=== PATIENT | male | born 1955 | race Asian ===

== ENCOUNTER 2021-09-18 14:59 | Emergency (ER) | payer MEDICARE ==
[~2021-09-18] VITALS: Ht 170.2 cm; Wt 70.8 kg
--- NOTE | 2021-09-18 15:15 | NUR ---
Dr Quevedo at the bedside for MSE.
[2021-09-18] MEDS ORDERED: ASPI81TA31 PO (15:24)
[2021-09-18] MEDS ORDERED: METO-357 PO (15:24)
[2021-09-18] MEDS ORDERED: ATOR80TA PO (15:24)
[2021-09-18] MEDS ORDERED: CLOP75TA15 PO (15:24)
[2021-09-18] MEDS ORDERED: LISI10TA29 PO (15:24)
[2021-09-18 16:28] LABS: CARBON DIOXIDE 28 mmol/L (21-32); CHLORIDE 106 mmol/L (98-107); CREATININE 0.9 mg/dL (0.6-1.3); GLUCOSE 105 mg/dL (74-106); UREA NITROGEN, BLOOD 21 mg/dL (7-18)
[2021-09-18 16:55] LABS: ALANINE AMINOTRANSFERASE 32 U/L (16-63); ALKALINE PHOSPHATASE 84 U/L (50-136); ASPARTATE AMINOTRANSFERASE 16 U/L (15-37); BILIRUBIN,DIRECT 0.1 mg/dL (0.0-0.2); BILIRUBIN,TOTAL 0.5 mg/dL (0.2-1.0); TOTAL PROTEIN, SERUM 7.2 g/dL (6.4-8.2)
[2021-09-18 17:20] LABS: HEMATOCRIT 42.9 % (36.7-47.1); MEAN CORPUSCULAR HEMOGLOBIN 31.2 uug (23.8-33.4); MEAN CORPUSCULAR VOLUME 93.8 fL (73.0-96.2); PLATELET COUNT (AUTO) 192 K/uL (152-348)
--- NOTE | 2021-09-18 18:00 | NUR ---
Resting in bed, no c/o pain, dinner tray provided.
[2021-09-18] MEDS ORDERED: ASPIRIN EC 81 MG TABLET.DR PO ONE (18:20)
[2021-09-18] MEDS: ASPIRIN 81 MG TAB.CHEW PO ONE ×2 (18:22)
--- NOTE | 2021-09-18 18:40 | NUR ---
Dr Quevedo spoke to Dr guadalupe(from Pt's insurance). Awaiting transfer info/admit auth.
[2021-09-18] MEDS ORDERED: MAGNESIUM HYDROXIDE 30 ML LIQUID UDC PO PRN (18:45)
[2021-09-18] MEDS ORDERED: ONDANSETRON 4 MG/2 ML VIAL IV PRN (18:45)
[2021-09-18] MEDS ORDERED: ACETAMINOPHEN 325 MG TABLET PO PRN (18:45)
[2021-09-18] MEDS ORDERED: HYDROCODONE/APAP 5-325MG TABLET PO PRN (18:45)
[2021-09-18] MEDS ORDERED: NITROGLYCERIN 0.4 MG/TAB BOTTLE SL PRN (18:45)
[2021-09-18] MEDS ORDERED: MORPHINE SULFATE 2 MG/1 ML DISP.SYRIN IV PRN (18:45)
--- NOTE | 2021-09-18 19:21 | NUR ---
pt a/o denies pain.
--- NOTE | 2021-09-18 20:42 | NUR ---
Er mailroom clerk to call insurance to determine where pt will be sent.
--- NOTE | 2021-09-18 21:00 | NUR ---
informed we are waiting on insurance verification to determine if pt can be admitted here to must be transferred to another hospital.
--- NOTE | 2021-09-18 21:16 | NUR ---
informed by JACQUELINE waters that per insurance pt will be transferred to [facility] informed the pt.
--- NOTE | 2021-09-19 00:03 | NUR ---
call to [facility] hosp[facility] case manager for update on status of going to [facility]. states no new updates at this time.
[2021-09-19] MEDS ORDERED: ATORVASTATIN 40 MG TABLET ONE (01:37)
[2021-09-19] MEDS: ATORVASTATIN 40 MG TABLET PO SCH (01:40)
[2021-09-19] MEDS: PANTOPRAZOLE SODIUM 40 MG TABLET.DR PO SCH (07:00)
--- NOTE | 2021-09-19 07:48 | NUR ---
patient resting with eyes closed, VS stable
[2021-09-19] MEDS ORDERED: CLOPIDOGREL 75 MG TABLET ONE (09:26)
[2021-09-19] MEDS ORDERED: ASPIRIN EC 81 MG TABLET.DR PO ONE (09:26)
[2021-09-19] MEDS ORDERED: PANTOPRAZOLE SODIUM 40 MG TABLET.DR PO ONE (09:26)
[2021-09-19] MEDS ORDERED: METOPROLOL SUCCINATE XL 50 MG TAB.SR.24H PO ONE (09:27)
[2021-09-19] MEDS ORDERED: LISINOPRIL 10 MG TABLET ONE ×2 (09:27→09:28)
[2021-09-19] MEDS: ASPIRIN 81 MG TAB.CHEW PO SCH (09:35)
[2021-09-19] MEDS: CLOPIDOGREL 75 MG TABLET PO SCH (09:35)
[2021-09-19] MEDS: METOPROLOL SUCCINATE XL 50 MG TAB.SR.24H PO SCH (09:35)
[2021-09-19] MEDS: LISINOPRIL 10 MG TABLET PO SCH (09:35)
--- NOTE | 2021-09-19 11:38 | NUR ---
Patient discharged to home in stable condition. Written and verbal after care instructions given. Patient verbalizes understanding of instructions. Stressed follow up or return to ER for worsening s/s. patient IV d/c and wrist band removed, ER MD teaching reinforced
[2021-09-19 11:39] VITALS: BP 143/72
[2021-09-20] MEDS ORDERED: METO25TA6 PO (14:05)
[2021-09-20] MEDS ORDERED: LISI-782 PO (14:05)
[2021-09-20] MEDS ORDERED: FLUT12AE INH (14:05)
[2021-09-21] MEDS ORDERED: LISINOPRIL 5 MG TABLET PO SCH (09:00)
[2021-09-21] MEDS ORDERED: METOPROLOL TARTRATE 25 MG TABLET PO SCH (09:00)
[2021-09-21] MEDS ORDERED: FLUTICASONE/VILANTEROL 1 EACH BLST.W.DEV INH SCH (09:00)
== END 2021-09-19 11:38 | disposition home or self-care (01) ==
LOC: ER 14:59 → TRANSITION 19:54 → UNDOADMIN 19:54 → TRANSITION 09-19 11:16 → ER 09-19 11:38 → UNDODISIN 09-19 11:40 → ER 09-20 13:00
DX: R07.9 Chest pain, unspecified (principal); R00.1 Bradycardia, unspecified; Z79.82 Long term (current) use of aspirin; Z79.899 Other long term (current) drug therapy; Z79.02 Long term (current) use of antithrombotics/antiplatelets; I25.2 Old myocardial infarction; I25.10 Atherosclerotic heart disease of native coronary artery without angina pectoris; Z95.5 Presence of coronary angioplasty implant and graft; Z20.822 Contact with and (suspected) exposure to COVID-19
CPT/HCPCS: 36415; 71045; 84443; 84484; 85025; 93005; A4663; G0378